=== PATIENT | male | born 2000 | race Caucasian/White ===

== ENCOUNTER → 2020-09-07 | Outpatient (CLI) | payer OTHER ==
--- NOTE | 2020-09-07 15:54 | US ---
EXAMINATION TYPE: US scrotum with doppler. TECHNIQUE: Grayscale and color Doppler Duplex imaging performed of the scrotum. 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 There is no evidence of testicular torsion. No hyperemia on either side. Presence of hydroceles: no Presence of varicoceles: no IMPRESSION: No sonographic evidence for testicular torsion or epididymoorchitis. No hydrocele or varicocele.
== END | disposition home or self-care (01) ==
LOC: RADUSWWP 14:53
PROVIDERS: ATTEND Emergency Medicine
DX: N50.819 Testicular pain, unspecified (principal)
CPT/HCPCS: 76870; 93975